=== PATIENT | female | born 1960 ===

== ENCOUNTER 2021-01-21 07:00 | Outpatient (CLI) | payer OTHER ==
--- NOTE | 2021-01-21 13:42 | XRAY Report ---
PROCEDURE: Wrist 4 View LT INDICATIONS: LEFT WRIST PAIN TECHNIQUE: 4 views of the wrist were acquired. COMPARISON: None FINDINGS: Bones: No fractures or dislocations. No suspicious bony lesions. Joint spacing is maintained. Mild degenerative changes of the triscaphe and first carpometacarpal joint. Scaphoid view: No fracture. Soft tissues: Mild soft tissue prominence most noticeably over the dorsal wrist IMPRESSION: No acute osseous abnormality. Minimal degenerative changes of the wrist and thumb. Soft tissue swelling. Reviewed by: Robbi Weaver DO on 01/21/2021 12:41 PM K[facility] Approved by: Robbi Weaver DO on 01/21/2021 12:41 PM KEV[facility] Station ID: [id number]
== END 2021-01-21 23:59 | disposition home or self-care (01) ==
LOC: DI.S 07:00
PROVIDERS: ATTEND Physician Assistant
DX: M19.032 Primary osteoarthritis, left wrist (principal); M18.12 Unilateral primary osteoarthritis of first carpometacarpal joint, left hand

== ENCOUNTER 2021-12-20 08:00 | Outpatient (CLI) | payer OTHER ==
--- NOTE | 2021-12-21 08:35 | XRAY Report ---
PROCEDURE: Sacrum/Coccyx INDICATIONS: CONTUSION OF LOWER BACK/PELVIS TECHNIQUE: 3 views of the sacrum and coccyx acquired. COMPARISON: None. FINDINGS: BONES/JOINTS: No acute, displaced fracture. Diffuse osteopenia. No widening of the pubic symphysis. The sacroiliac joints are symmetric. The femoral heads are normal ly seated within the acetabulum. SOFT TISSUES: No focal abnormality. IMPRESSION: 1.No acute osseous abnormality of the pelvis. If the patient's pain persists, consider bone scan or magnetic resonance imaging. Reviewed by: Tony Perkins MD on 12/21/2021 8:34 AM PDT Approved by: Tony Perkins MD on 12/21/2021 8:34 AM PDT Station ID: [id number]
== END 2021-12-20 23:59 ==
LOC: DI.S 08:00
PROVIDERS: ATTEND Emergency Medicine
DX: S30.0XXA Contusion of lower back and pelvis, initial encounter (principal)